=== PATIENT | male | born 1980 | race Caucasian/White ===

== ENCOUNTER 2020-04-27 11:54 | Emergency (ER) | payer MEDICARE, OTHER ==
[~2020-04-27] VITALS: Ht 188 cm; Wt 79.4 kg
[~2020-04-27 11:54] MED LIST: ASPIRIN EC325 MG PO; ASPIRIN EC81 M1 PO; ATIVAN1 MG PO; ATORVASTATIN CA40 MG PO; CARVEDILOL6.25 MG PO; CELEXA 20 MG TA20 MG; CEPHALEXIN 500500 M1 PO; COREG6.25 MG PO; ESCITALOPRAM OX20 MG PO; FISH OIL 1,0001 EAC5 PO; FISH OIL 1,001000 M2 PO; HYDROCODON-ACE1 EAC5 PO; ISOSORBIDE DINI30 MG PO; LEXAPRO 10 MG T10 M1 PO; LEXAPRO20 MG PO; LIDODERM 5%1 PATC1 TRANSDERM; LISINOPRIL2.5 MG PO; LISINOPRIL5 MG PO; NITROGLYCERIN0.4 MG SL; NITROGLYCERIN0.4 MG SUBLING; NORCO 10-325 T1 EACH PO; NORCO 5-325 TA1 EACH PO; OXYCODONE HCL5 M1 PO; OXYCONTIN10 M1 PO; OXYCONTIN20 M1 PO; PERCOCET 5-3251 EACH PO; PERCOCET PO; PROAIR HFA8.5 GM IH; PROBIOTIC1 EAC1 PO; XANAX 0.5 MG0.5 M1 PO
[2020-04-27 12:07] VITALS: BP 123/75
[2020-04-27] MEDS ORDERED: PERCOCET 7.5-31 EAC1 PO (12:29)
[2020-04-27] MEDS ORDERED: MEDROLDOSEPACK PO (12:30)
[2020-04-27] MEDS ORDERED: LIDODERM1 EACH TOP (12:30)
== END 2020-04-27 12:40 | disposition home or self-care (01) ==
LOC: M.ERS 11:54
DX: M54.5 Low back pain (principal); G89.29 Other chronic pain; E78.00 Pure hypercholesterolemia, unspecified; F41.9 Anxiety disorder, unspecified; Z86.14 Personal history of Methicillin resistant Staphylococcus aureus infection

== ENCOUNTER 2021-01-21 17:15 | Emergency (ER) | payer MEDICARE, OTHER ==
[~2021-01-21] VITALS: Ht 188 cm; Wt 81.7 kg
[~2021-01-21 17:15] MED LIST changes: +LIDODERM1 EACH TOP; +MEDROLDOSEPACK PO; +PERCOCET 7.5-31 EAC1 PO
[2021-01-21] MEDS ORDERED: AUGMENTIN 875-1 EACH PO (18:01)
[2021-01-21] MEDS ORDERED: CENTANY30 GM TOP (18:01)
[2021-01-21 18:11] VITALS: BP 133/68
== END 2021-01-21 18:12 | disposition home or self-care (01) ==
LOC: M.ERS 17:15
DX: S01.412A Laceration without foreign body of left cheek and temporomandibular area, initial encounter (principal); S01.452A Open bite of left cheek and temporomandibular area, initial encounter; S80.212A Abrasion, left knee, initial encounter; S80.211A Abrasion, right knee, initial encounter; S50.311A Abrasion of right elbow, initial encounter; S50.312A Abrasion of left elbow, initial encounter; E78.00 Pure hypercholesterolemia, unspecified; G35 Multiple sclerosis; Z95.1 Presence of aortocoronary bypass graft; Y04.1XXA Assault by human bite, initial encounter; Y93.89 Activity, other specified; Y92.89 Other specified places as the place of occurrence of the external cause; Y99.8 Other external cause status